=== PATIENT | female | born 1985 | race Caucasian/White ===

== ENCOUNTER 2016-11-19 21:39 | Emergency (ER) | payer SELFPAY ==
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
== END 2016-11-19 23:48 | disposition home or self-care (01) ==
LOC: CED 21:39
DX: S16.1XXA Strain of muscle, fascia and tendon at neck level, initial encounter (principal); F41.9 Anxiety disorder, unspecified; F19.10 Other psychoactive substance abuse, uncomplicated; F17.200 Nicotine dependence, unspecified, uncomplicated; Y04.0XXA Assault by unarmed brawl or fight, initial encounter; Y07.12 Biological mother, perpetrator of maltreatment and neglect
CPT/HCPCS: 72040; 99284